=== PATIENT | female | born 1995 | race American Indian/Alaskan Native ===

== ENCOUNTER 2017-11-10 03:35 | Inpatient (IN) | payer MEDICAID ==
--- NOTE | 2017-11-10 03:56 | History and Physical Report ---
History of Present Illness Date of examination: 11/10/17 Date of admission: 11/10/17 03:35 Chief complaint: my water broke History of present illness: Pt presents with grossly SROM as per triage and charge nurses. Pt admitted for repeat c/s with twin gestation at 38.0 weeks. Consents signed and placed on the chart. EDC Confirmation: 11/24/2017 Gestational Age: 21 3/7 weeks Past History : 2 Term Births: 1 Premature Births: 0 Living Children: 1 Para: 1 Mult. Births: 0 Prev : 1 Aborta: 0 Elect. Ab: 0 Spont. Ab: 0 Ectopics: 0 # 1 Delivery date: 2017 Weeks Gestation: term labor: no Delivery type: Delivery location: [facility] [place] Sex: Male weight: 7#8 Comments: c/s for FTP Past Medical History: Negative Past Medical History Past Surgical History: (2016) Past Medical History Surgery (Non-obstetrician gynecologist): (2016) Abnormal PAP: negative [place] Exposure: negative Infertility: negative Uterine Anomaly: negative Uterine Surgery (not C/S): negative Other Gynecologic Problems: negative Family Hx: no known fmh denies hx cancer Social Hx: single student + [employer] last used 05/2017 ETOH prior to no smoking hx Infection History Hx of STD: none HIV Risk Eval: low risk Hepatitis B Risk Eval: low risk Personal hx. of genital herpes: no Partner hx. of genital herpes: no Rash, Viral, or Febrile illness since last LMP? no Genetic History Congenital Heart Defect: Mom: no Dad: unknown Demian Disease: Mom: no Dad: unknown Thalassemia Mom: no Dad: unknown Neural Tube Defect Mom: no Dad: unknown Down's Syndrome Mom: no Dad: unknown Wyatt-Sachs Mom: no Dad: unknown Sickle Cell Disease/Trait Mom: no Dad: unknown Hemophilia Mom: no Dad: unknown Muscular Dystrophy Mom: no Dad: unknown Cystic Fibrosis Mom: no Dad: unknown Sarah Chorea Mom: no Dad: unknown Mental Retardation Mom: no Dad: unknown Fragile X Mom: no Dad: unknown Other Genetic/Chromosomal Disorder Mom: no Dad: unknown Child w/other defect Mom: no Dad: unknown Enviromental Exposures Xray Exposure: no Medication, drug, or alcohol use since LMP: no Chemical/Other Exposure: no Exposure to Cat Liter: no Hx of Parvovirus (Fifth Disease): no Occupational Exposure to Children: none Active Medications (reviewed today): None Current Allergies (reviewed today): * NICKEL (Moderate) Past History Past Medical History: other (see hpi) Past Surgical History: other (see hpi) RECORD CLERK History: other (see hpi) Family/Genetic History: other (see hpi) Social history: other (see hpi) Medications and Allergies Allergies Allergy/AdvReac Type Severity Reaction Status Date / Time No Known Drug Allergies Allergy Unknown Verified 11/10/17 04:47 Active Meds: Active Medications Citric Acid/Sodium Citrate (Bicitra) 30 ml PO ONCE ONE Stop: 11/10/17 03:51 Famotidine (Pepcid) 20 mg IV ONCE ONE Stop: 11/10/17 03:51 Cefazolin Sodium (Ancef/Sterile Water 2 Gm/20 Ml) 2 gm in 20 mls @ 80 mls/hr IV PREOP NR; Protocol - Physical Exam Cardiovascular: Normal S2 Lungs: Positive: Normal air movement Abdomen: Positive: normal appearance, soft. Negative: distention, tenderness - Obstetrical Cervical Dilatation: 3 (grossly SROM as per triage nurse) Results Result Diagrams: 11/10/17 04:20 All other labs normal. Assessment and Plan - Patient Problems (1) SROM (spontaneous rupture of membranes) Current Visit: Yes Status: Acute Plan to address problem: -previous c/s admit for repeat c/s with BTL -consents to be signed and placed on the chart. (2) Twin gestation in third trimester Current Visit: Yes Status: Acute Qualifiers: Multiple gestation type: dichorionic and diamniotic Qualified Code(s): O30.043 - Twin , dichorionic/diamniotic, third trimester (3) 38 weeks gestation of Current Visit: Yes Status: Acute (4) Previous delivery affecting Current Visit: Yes Status: Acute (5) Sterilization Current Visit: Yes Status: Acute Plan to address problem: -all risk, benefits and alternatives were d/w pt and all questions were addressed and answered.
[2017-11-10] MEDS ORDERED: ANCEF/STERILE WATER 2 GM/20 ML 2 GM/20 ML SYRINGE IV NR (04:00)
[2017-11-10] MEDS ORDERED: PITOCin/NS 20 UNIT/1000ML DRIP 20 UNITS/1,000 ML BAG IV SCH ×2 (04:00→08:00)
[2017-11-10] MEDS ORDERED: LACTATED RINGERS 1,000 ML IV SCH (04:00)
[2017-11-10 04:45] LABS: Basophils # (Auto) 0.1 K/mm3 (0.0-0.1); Basophils % (Auto) 0.8 % (0.0-1.8); Eosinophils % (Auto) 0.4 % (0.0-4.3); Hematocrit 37.4 % (30.3-42.9); Hemoglobin 12.9 gm/dl (10.1-14.3); Lymphocytes # (Auto) 2.4 K/mm3 (1.2-5.4); Mean Corpuscular HGB Conc 34 % (30-34); Mean Corpuscular Hemoglobin 29 pg (28-32); Mean Corpuscular Volume 85 fl (79-97); Monocytes # (Auto) 0.8 K/mm3 (0.0-0.8); Monocytes % (Auto) 9.6 % (0.0-7.3); Platelet Count 184 K/mm3 (140-440); Red Blood Count 4.39 M/mm3 (3.65-5.03); Red Cell Distribution Width 15.6 % (13.2-15.2)
[2017-11-10] MEDS ORDERED: PITOCin/NS 20 UNIT/1000ML DRIP 20,000 MILLIUNITS/1,000 ML BAG IV ONE (04:47)
[2017-11-10] MEDS ORDERED: BICITRA ONE (04:48)
[2017-11-10] MEDS ORDERED: PEPCID IV ONE ×2 (04:48→05:00)
[2017-11-10] MEDS ORDERED: ANCEF/STERILE WATER 2 GM/20 ML 2 GM/20 ML SYRINGE IV ONE (04:48)
[2017-11-10] MEDS ORDERED: REGLAN ONE (04:48)
[2017-11-10] MEDS ORDERED: BICITRA PO ONE (05:00)
[2017-11-10] MEDS ORDERED: REGLAN IV ONE (05:00)
[2017-11-10] MEDS ORDERED: DIPRIVAN 10 MG/ML IV ONE (05:41)
[2017-11-10] MEDS ORDERED: QUELICIN ONE (06:18)
[2017-11-10] MEDS ORDERED: LACTATED RINGERS 1,000 ML ONE (06:18)
[2017-11-10] MEDS ORDERED: ZOFRAN ONE (06:18)
[2017-11-10] MEDS ORDERED: XYLOCAINE MPF 2% ONE (06:19)
[2017-11-10] MEDS ORDERED: SUBLIMAZE ONE ×2 (06:19→06:41)
[2017-11-10] MEDS ORDERED: ANCEF ONE (06:19)
[2017-11-10] MEDS ORDERED: TORADOL ONE (06:32)
[2017-11-10] MEDS ORDERED: NARCAN 0.4 MG/1 ML IV PRN ×2 (07:11→08:00)
--- NOTE | 2017-11-10 07:21 | Operative Report ---
Operative Report Operative Report: Date of procedure: 11/10/2017 Pre-operative diagnosis: Twin gestation 38-0/7 weeks gestation Rupture of membranes Active labor Previous section Desires permanent sterilization Post-operative diagnosis: Same plus breech presentation of twin A Procedure name(s): Repeat low transverse section via Pfannenstiel skin incision Bilateral tubal ligation via modified Lewis[place] method Surgeon: Dr. 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 endotracheal anesthesia due to patient's inability to sit for placement of epidural. EBL: 600 mL Urine output: 200 mL of clear urine out at the end of the procedure Fluids: 1500 mL Findings: Twin A liveborn male weight 5 lbs. 14 oz. Apgars of 8 and 9 at one and 5 minutes born via breech extraction Twin B liveborn female infant weight 5 lbs. 6 oz. Apgars of 8 and 9 at one and 5 minutes Grossly normal fallopian tubes and ovaries bilaterally Indications: Patient presented to triage with grossly a spontaneous rupture of membranes and and latent labor with previous history of section. Patient also desired permanent sterilization. Patient was consented for repeat section with bilateral tubal ligation. All risks benefits and alternatives were discussed with the patient. Consents were signed and placed on the chart. Procedure: Patient was taking to the operating room. Patient was then prepped and draped in sterile fashion after anesthesia was found to be adequate. A low transverse skin incision was made with the scalpel through previous incisional scar and carried down to the underlying layer of fascia with the Bovie. The fascia was then incised in the midline and this incision was extended bilaterally with the Bovie. The superior aspect of the fascia was grasped with Anjel clamps tented upward and dissected off of the anterior rectus muscles with the scalpel. In similar fashion the inferior aspect of the fascia was grasped with Anjel clamps tented upward and dissected off of the anterior rectus muscles. The rectus muscles were then bluntly divided in the midline. The peritoneum was identified and entered into sharply. The Guido retractor was placed A lower transverse uterine incision was made with the scalpel and extended bilaterally with the bandage scissors. Upon entry into the uterus twin A was noted to be in double footling breech presentation. was placed in sterile bassinet after cord was cut and clamped 2. Twin B underwent artificial rupture of membranes with clear fluid noted. The 's head was then delivered atraumatically. The anterior shoulder and rest of infant delivered without difficulty. The umbilical cord was clamped x2. The cord was cut. The was then placed in sterile bassinet. The cord blood was collected. The placenta was manually extracted in its entirety. The uterus was exteriorized and cleared of all clots and debris. The uterine incision was closed using 0 Vicryl in a running locking fashion. A second imbricating layer of the same suture was then created. Attention was then turned to the fallopian tubes. The right fallopian tube was grasp with the Erica elevated suture ligated transected with excellent hemostasis noted. This was repeated on the left side the portions of left and right tube passed off for the lab for pathology. The posterior cul-de-sac was copiously irrigated. The uterus was returned to the abdomen. The gutters were also irrigated. The anterior rectus muscles were reapproximated using 3-0 Vicryl. The anterior rectus fascia was reapproximated using 0 Vicryl in a running fashion. The subcuticular fat was reapproximated using 2-0 Vicryl in a running fashion. The skin was reapproximated with 4-0 Monocryl in subcuticular stitch. The patient tolerated the procedure well. Sponge lap and needle counts were all correct x3. Patient was taken to the recovery room awake and in stable condition.
[2017-11-10] MEDS: DILAUDID IV PRN ×2 (07:35→08:04)
[2017-11-10] MEDS: MORPHINE PCA 30MG/30ML IV SCH ×2 (07:54→21:38)
[2017-11-10] MEDS ORDERED: ZOFRAN IV PRN (08:00)
[2017-11-10] MEDS ORDERED: SODIUM CHLORIDE FLUSH SYRINGE 10 ML IV PRN (08:00)
[2017-11-10] MEDS ORDERED: LANSINOH TP PRN (08:00)
[2017-11-10] MEDS ORDERED: MYLICON PO PRN (08:00)
[2017-11-10] MEDS ORDERED: TUCKS PAD TP PRN (08:00)
[2017-11-10] MEDS ORDERED: D5LR 1,000 ML IV SCH (08:00)
[2017-11-10] MEDS ORDERED: ANCEF/NS 1 GM/50 ML 1 GM/50 ML BAG IV SCH (08:00)
[2017-11-10 21:17] LABS: Hematocrit 26.3 % (30.3-42.9); Hemoglobin 8.9 gm/dl (10.1-14.3)
[2017-11-10] MEDS: TORADOL IV PRN (21:46)
[2017-11-10] MEDS: ceFAZolin 1 GM in NACL 0.9% 20 ML IV SCH (21:48)
[2017-11-11] MEDS: ceFAZolin 1 GM in NACL 0.9% 20 ML IV SCH (08:25)
[2017-11-11] MEDS: TORADOL IV PRN (08:26)
--- NOTE | 2017-11-11 10:01 | Progress Note ---
Assessment and Plan patient doing well, no complaints. VSSAF, twins, lochia scant. postop H&H 8.9/26.3 (asymptomatic.) Plan to continue postop pathway. encouraged increased activity as tolerated. - Patient Problems (1) delivery delivered Current Visit: Yes Status: Acute Subjective - Subjective Date of service: 11/11/17 Principal diagnosis: postop day #1 s/p repeat c/s, twins Patient reports: appetite normal, voiding normally, pain well controlled, ambulating normally, no dizzy ambulation, no flatus, no nauseated : doing well, nursing well Objective - Vital Signs Latest vital signs: Vital Signs Temp Pulse Resp BP Pulse Ox 11/10/17 21:18 98.6 F 99 H 19 110/70 100 11/10/17 16:20 98.1 F 94 H 20 114/72 99 Intake and Output 11/10/17 11/11/17 11/11/17 23:59 07:59 15:59 Intake Total 960 Output Total 1600 Balance -640 Intake: Oral 960 Output: Urine 1600 Void 1600 Other: Total, Intake Amount 480 Total, Output Amount 800 - Exam Breasts: Present: normal, Cardiovascular: Present: Regular rate Lungs: Present: Clear to auscultation, Normal air movement Abdomen: Present: normal appearance, soft Vulva: both: normal Uterus: Present: normal, firm, fundal height at umbilicus Extremities: Present: normal Incision: Present: normal, dry, dressed (rn to remove dressing during shower today) - Labs Labs: Abnormal lab results 11/10/17 Range/Units 20:44 Hgb 8.9 L D (10.1-14.3) gm/dl Hct 26.3 L D (30.3-42.9) %
[2017-11-11] MEDS: MOTRIN PO PRN (18:25)
[2017-11-11] MEDS: NORCO 5/325 PO PRN (18:25)
--- NOTE | 2017-11-11 19:44 | Progress Note ---
Subjective Date of service: 11/11/17 Principal diagnosis: postop day #1 s/p repeat c/s, twins Interval history: Pt doing well. No anesthetic related complaints. Objective - Constitutional Vitals: Vital Signs - 12hr 11/11/17 11/11/17 09:30 16:30 Temperature 98.6 F 99.1 F Pulse Rate 92 H 120 H Respiratory 22 22 Rate Blood Pressure 103/62 102/60 [Right] O2 Sat by Pulse 96 100 Oximetry - Labs CBC & Chem 7: 11/10/17 20:44 Labs: Abnormal lab results 11/10/17 Range/Units 20:44 Hgb 8.9 L D (10.1-14.3) gm/dl Hct 26.3 L D (30.3-42.9) %
[2017-11-12] MEDS: NORCO 5/325 PO PRN ×2 (02:49→17:09)
[2017-11-12] MEDS: MOTRIN PO PRN ×2 (02:49→17:09)
--- NOTE | 2017-11-12 11:55 | Discharge Summary ---
Providers - Providers Date of Admission: 11/10/17 03:35 Date of discharge: 11/12/17 (desires d/c home today) Attending physician: LEONOR ROBLEDO Primary care physician: LEONOR ROBLEDO Hospitalization Reason for admission: SROM, prev c/s, twin gestation Condition: Good Procedures: repeat c/s with tubal ligation Hospital course: uncomplicated repeat c/s and course Disposition: - TO HOME OR SELFCARE - Discharge Diagnoses (1) delivery delivered Status: Acute Core Measure Documentation - Palliative Care Palliative Care/ Comfort Measures: Not Applicable - Core Measures Any of the following diagnoses?: none Exam - Constitutional Vitals: Temp Pulse Resp BP Pulse Ox 98.0 F 98 H 22 99/61 99 11/12/17 08:10 11/12/17 08:10 11/12/17 08:10 11/12/17 08:10 11/12/17 08:10 General appearance: Present: no acute distress, well-nourished - EENT Eyes: Present: PERRL ENT: hearing intact, clear oral mucosa - Neck Neck: Present: supple, normal ROM - Respiratory Respiratory effort: normal Respiratory: bilateral: CTA - Cardiovascular Heart Sounds: Present: S1 & S2. Absent: rub, click - Extremities Extremities: pulses symmetrical, No edema Peripheral Pulses: within normal limits - Abdominal General gastrointestinal: Present: soft, non-tender, non-distended, normal bowel sounds Female genitourinary: Present: normal - Integumentary Integumentary: Present: clear, warm, dry - Musculoskeletal Musculoskeletal: gait normal, strength equal bilaterally - Psychiatric Psychiatric: appropriate mood/affect, intact judgment & insight - Neurologic Neurologic: CNII-XII intact, moves all extremities - Additional findings Additional findings: incision D&I, fundus firm, lochia scant, VSSAF, H&H stable. Plan Activity: no restrictions Diet: regular Wound: open to air, keep clean and dry Follow up with: LEONOR ROBLEDO MD [Primary Care Provider] - 7 Days (Congratulations!! Please keep your appointment in the office next week for your incision check and your son's circumcision. Bring EMLA cream to your son's appointment and await further instructions. Call for any questions or concerns.) Prescriptions: Ibuprofen 800 mg PO Q6HR #30 tablet Lidocain2.5%/Prilocai2.5% [Emla] 2 gm TP ONCE #1 tube oxyCODONE /ACETAMINOPHEN [Percocet 5/325] 1 tab PO Q4HR #30 tab
[2017-11-12 18:20] VITALS: BP 118/76
== END 2017-11-12 19:50 | disposition home or self-care (01) | DRG 765 ==
LOC: APU 03:35 → OB 08:59
PROVIDERS: ADMIT Obstetrics & Gynecology; ATTEND Obstetrics & Gynecology
PROC: 10D00Z1 Extraction of Products of Conception, Low, Open Approach (ICD-10-PCS; principal; 2017-11-10)
PROC: 0UT70ZZ Resection of Bilateral Fallopian Tubes, Open Approach (ICD-10-PCS; 2017-11-10)
DX: O34.211 Maternal care for low transverse scar from previous cesarean delivery (principal); O30.003 Twin pregnancy, unspecified number of placenta and unspecified number of amniotic sacs, third trimester; Z3A.38 38 weeks gestation of pregnancy; Z37.2 Twins, both liveborn; Z91.048 Other nonmedicinal substance allergy status; Z30.2 Encounter for sterilization; O32.1XX1 Maternal care for breech presentation, fetus 1
CPT/HCPCS: 36415; 85014; 85018; 85025; 86592; 86706; 86762; 86850; 86900; 86901; 87806; 88302; 88307; C1765; J0330; J0690; J1170; J1885; J2270; J2405; J2590; J2704; J2765; J3010; J7120; J7121